=== PATIENT | female | born 1940 | race African-American/Black ===

== ENCOUNTER 2017-11-05 14:14 | Observation (INO) ==
--- NOTE | 2017-11-05 14:27 | Emergency Department Note ---
Disposition Clinical Impression: Acute exacerbation of chronic obstructive airways disease, Elevated troponin Disposition: Admitted As Inpatient Condition: Good Referrals: Gricelda Hall DO [Primary Care Provider] - SOB HPI - General Chief Complaint: ED Shortness of Breath/Dyspnea Stated Complaint: short of breath Time Seen by Provider: 11/05/17 14:15 Source: patient Mode of arrival: EMS Limitations: other (Dementia) Nursing Notes Reviewed: Yes Vital Signs Reviewed: Yes - History of Present Illness Patient recently came home after a stroke. She has a son that is taking care of her. The neighbor says is really not able to take care of her very well was concerned because she was complaining of shortness of breath. Does have home health that comes in to see her on a regular basis. Patient denies any complaints upon arrival but does have Alzheimer's dementia. Pt Subjective Complaint: shortness of breath Onset (ago): Just GUIDEMAN Severity: mild Consistency/Duration: intermittent Improves with: nothing Worsens with: nothing Associated symptoms: Reports: denies other symptoms Treatment prior to arrival: bronchodilator - Related Data Home Medications Medication Instructions Recorded Confirmed Aspirin [Ecotrin] 325 mg PO DAILY 11/05/17 11/05/17 Atenolol [Tenormin] 25 mg PO DAILY 11/05/17 11/05/17 Cholecalciferol (Vitamin D3) 1,000 unit PO DAILY 11/05/17 11/05/17 [Vitamin D] Donepezil [Aricept] 10 mg PO HS 11/05/17 11/05/17 Fluticasone/Salmeterol [Advair 1 each IH BID 11/05/17 11/05/17 100-50 Diskus] Simvastatin [Zocor] 10 mg PO HS 11/05/17 11/05/17 Tiotropium [Spiriva] 18 mcg IH DAILY 11/05/17 11/05/17 Allergies Allergy/AdvReac Type Severity Reaction Status Date / Time No Known Allergies Allergy Verified 09/20/15 09:46 All systems ED: reviewed and negative except as stated. Review of Systems: As Per HPI Constitutional: Denies: fever, chills, weakness, weight change Eyes: Denies: eye pain, eye discharge, vision change ENT ED: Denies: ear pain, throat pain, dental pain, hearing loss, epistaxis, congestion, dysphagia Cardiovascular: Denies: chest pain, palpitations, dyspnea on exertion, edema, syncope Respiratory: Reports: as per HPI Gastrointestinal: Denies: abdominal pain, nausea, vomiting, diarrhea, constipation, hematemesis, melena, hematochezia Genitourinary: Denies: dysuria, frequency, hematuria, discharge Musculoskeletal: Denies: back pain, neck pain, arthralgia, myalgia Integumentary: Denies: rash, abrasion, lesions Neurological: Denies: headache, weakness, numbness, paresthesias, confusion, abnormal gait, vertigo Psychiatric: Denies: anxiety, depression, suicidal thoughts, homicidal thoughts , auditory hallucinations, visual hallucinations Endocrine: Denies: fatigue Hematological/Lymphatic: Denies: easy bleeding, easy bruising Allergic/Immunologic: Denies: facial swelling, urticaria Past Medical History - Past Medical History Source: old records reviewed Medical history: Reports: CVA, hyperlipidemia, hypertension, myocardial infarction, other Surgical history: Reports: angioplasty/stent Psychiatric history: Reports: no psych history - Social History Smoking Status: Never smoker Smokeless Tobacco Status: No Alcohol use: Reports: none Drug use: Reports: none Shortness of Breath/Dyspnea - MDM Narrative Medical decision making narrative: We have been waiting for several hours to place this patient in [place] there is no beds available. [facility] has no beds available. Therefore we will admit her to our facility pending transfer to [place] tomorrow. I have discussed with the hospitalist and the patient will be admitted here pending a bed in [place] - Lab Data Lab results reviewed: Yes I reviewed the patient's lab results. - Radiology Data Radiology results reviewed: Yes I reviewed the patient's radiology results. - EKG Data EKG attestation: Yes I reviewed and interpreted this EKG. EKG results narrative: EKG sinus rhythm with anterior left anterior fascicular block. Lead V3 and [address] changes
[2017-11-05] MEDS ORDERED: 0.9 % Sodium Chloride 1,000 ML IVC SCH ×3 (14:30→19:49)
[2017-11-05 15:13] LABS: Basophils % 0.1 %; Eosinophils % 0.3 %; Hematocrit 43.8 % (35.3-44.9); Immature Granulocytes % 0.5 % (0-4); Lymphocytes # 2.5 K/mcL (0.6-4.6); Lymphocytes % 31.5 %; Mean Corpuscular Hemoglobin 28.1 pg (28.0-33.3); Mean Corpuscular Volume 87.8 fL (83.0-100.0); Mean Platelet Volume 10.3 fL (9.4-12.4); Monocytes # 0.7 K/mcL (0.0-1.3); Monocytes % 8.3 %; Neutrophils # 4.7 K/mcL (1.6-8.9); Platelet Count 305 K/mcL (140-400); Red Blood Count 4.99 M/mcL (3.82-4.97); Red Cell Distribution Width 14.5 % (11.5-14.5); Segmented Neutrophils % 59.3 %
[2017-11-05 15:30] LABS: Bilirubin,Urine Small (Negative); Blood,Urine Trace-intact (Negative); Clarity,Urine Slightly Cloudy (Clear); Color,Urine Yellow (Yellow); Glucose,Urine (UA) Normal (Normal); Ketones,Urine 40 mg/dL (Negative); Leukocyte Esterase,Urine Negative (Negative); Nitrite,Urine Negative (Negative); PH,Urine 6.5 pH Units (5.0-8.0); Protein,Urine 100 mg/dL (Neg-Trace); Specific Gravity,Urine >= 1.030 (1.010-1.025); Urobilinogen,Urine Normal (Normal)
[2017-11-05 15:31] LABS: Alanine Aminotransferase 18 Units/L (0-55); Albumin 3.5 g/dL (3.5-5.0); Albumin/Globulin Ratio 0.8 (1.1-2.2); Alkaline Phosphatase 100 Units/L (38-126); Aspartate Amino Transferase 33 Units/L (5-34); BUN/Creatinine Ratio 28 (6-26); Bilirubin,Total 0.6 mg/dL (0.2-1.2); Blood Urea Nitrogen 22 mg/dL (7-20); Calcium 9.8 mg/dL (8.6-10.8); Carbon Dioxide 22 mEq/L (19-29); Chloride 109 mEq/L (98-109); Globulin 4.2 g/dL (2.4-3.5); Glucose 96 mg/dL (70-99); Osmolality,Calculated 303 (280-300); Potassium 3.9 mEq/L (3.5-4.5); Sodium 145 mEq/L (136-145); Total Protein 7.7 g/dL (6.0-8.3); eGFR For African Americans > 60 (> 60); eGFR For Non-African Americans > 60 (> 60)
[2017-11-05 15:35] LABS: Mucus,Urine Many (Few); RBC,Urine 0-3 per hpf (0-3); Squamous Epithelial Cell,Urine Many per lpf (None-Few); WBC,Urine 0-3 per hpf (0-3)
[2017-11-05 15:36] LABS: Bacteria,Urine Many per hpf (None-Few)
[2017-11-05] MEDS ORDERED: Aspirin 81 MG TAB.CHEW PO STA (15:50)
[2017-11-05] MEDS ORDERED: Naloxone 0.4 MG/ML INJ IVP PRN (19:49)
[2017-11-05] MEDS ORDERED: Acetaminophen 325 MG TABLET PO PRN (19:49)
[2017-11-05] MEDS ORDERED: methylPREDNISolone 125 MG/2 ML VIAL IVP ONE (19:49)
[2017-11-05 19:51] VITALS: BP 155/76
[2017-11-05] MEDS: Ipratropium/Albuterol Neb 3 ML IH SCH ×2 (21:06→21:07)
[2017-11-05] MEDS ORDERED: Budesonide/Formoterol 80/4.5 MDI IH SCH (22:00)
[2017-11-06] MEDS: Ipratropium/Albuterol Neb 3 ML IH SCH (00:27)
[2017-11-06] MEDS ORDERED: Aspirin Enteric Coated 325 MG Tablet PO SCH (09:00)
[2017-11-06] MEDS ORDERED: Cholecalciferol (D-3) 1,000 UNIT TABLET PO SCH (09:00)
[2017-11-06] MEDS ORDERED: Tiotropium 18 MCG inhalation IH SCH (09:00)
--- NOTE | 2017-11-06 09:40 | Electrocardiograph Report ---
[address] [place] [address] Test Date: 2017-11-05 Pat Name: Trish Hilliard Department: 2000 Room: 112 Gender: F Road Consultant: : 1940 Requested By: Varinder Call Order Number: [id number] Reading MD: Breezy Montejo MD Measurements Intervals [place] Rate: 81 P: 91 NH: 132 QRS: -73 QRSD: 103 T: 206 QT: 441 QTc: 479 Interpretive Statements SINUS RHYTHM INDETERMINATE AXIS LEFT ANTERIOR FASCICULAR BLOCK ANTEROSEPTAL MYOCARDIAL INFARCTION, PROBABLY RECENT ACUTE [place] BASELINE ARTIFACT Electronically Signed On 11-06-2017 9:39:25 EST by Breezy Montejo MD
--- NOTE | 2017-11-08 14:52 | Internal Med Progress Note ---
Date of Encounter: 11/08/17 Time of Encounter: 01:00 - Subjective Interval history: Patient was admitted late in the evening and was transferred [facility] actually saw the patient. - Constitutional Vitals: Temp Pulse Resp BP Pulse Ox 97.5 F L 78 20 155/76 96 11/05/17 19:51 11/05/17 19:51 11/05/17 19:51 11/05/17 19:51 11/05/17 19:51 Internal Medicine: Result - Labs CBC & Chem 7: 11/05/17 15:08 11/05/17 15:08 Consult Discharge Plan - Plan Referrals: Gricelda Hall DO [Primary Care Provider] -
== END 2017-11-05 21:40 | disposition short-term general hospital (02) ==
LOC: EMEROOGRE 14:14 → INPGRE 14:14
PROVIDERS: ADMIT Internal Medicine; ATTEND Internal Medicine